=== PATIENT | male | born 1980 | race Caucasian/White ===

== ENCOUNTER 2018-12-11 11:45 | Emergency (ER) | payer MEDICAID ==
[~2018-12-11] VITALS: Ht 170.2 cm; Wt 137.0 kg
[2018-12-11 11:51] VITALS: Ht 170.2 cm; Wt 137.0 kg
[2018-12-11 13:03] VITALS: BP 157/92
== END 2018-12-11 13:04 | disposition home or self-care (01) ==
LOC: ED 11:45
DX: S51.812A Laceration without foreign body of left forearm, initial encounter (principal); W26.8XXA Contact with other sharp object(s), not elsewhere classified, initial encounter; Y93.89 Activity, other specified; Y92.89 Other specified places as the place of occurrence of the external cause; Y99.0 Civilian activity done for income or pay
CPT/HCPCS: 90715; J2001

== ENCOUNTER 2018-12-21 16:15 | Emergency (ER) | payer MEDICAID ==
[~2018-12-21] VITALS: Ht 172.7 cm; Wt 140.6 kg
[2018-12-21 16:17] VITALS: Ht 172.7 cm; Wt 140.6 kg
[2018-12-21 17:09] VITALS: BP 162/110
== END 2018-12-21 17:09 | disposition home or self-care (01) ==
LOC: ED 16:15
DX: S51.812D Laceration without foreign body of left forearm, subsequent encounter (principal); X58.XXXD Exposure to other specified factors, subsequent encounter